=== PATIENT | male | born 1960 | race Caucasian/White ===

== ENCOUNTER 2025-03-29 06:46 | Day surgery (SDC) | payer OTHER, SELFPAY ==
[2025-03-29] VITALS (12 sets, daily range): BP systolic 120–152; BP diastolic 83–97; PULSE 60–87; RESP 13–22; TEMP 36.3–36.6; O2SAT 95–99
--- NOTE | 2025-03-29 07:46 | ANES.PREANE2 ---
Pre-Anesthetic Assessment Height/Weight: Height 5 ft 10 in Weight 226 lb Temp Pulse Resp BP Pulse Ox O2 Del Method 97.8 F 60 16 141/96 96 Room Air 03/29/25 07:05 03/29/25 07:05 03/29/25 07:05 03/29/25 07:05 03/29/25 07:05 03/29/25 07:14 Preop Diagnosis: Umbilical hernia Operation Date: 03/29/25 08:30 Proposed Procedures p Open Umbilical Hernia Repair w/ Mesh [id number], K46.9(Not Applicable) - Harry Covington MD Was Beta Thompson taken within 24 hours: N/A Was Clonidine taken within 24 hours: N/A Last intake: Intake Last Liquid Date 03/28/25 Last Liquid Time 23:45 Last Solid Date 03/28/25 Last Solid Time 23:45 Social No alcohol and No tobacco Exam alert, oriented x 3, clear to auscultation bilaterally and regular rate & rhythm Airway Submandibular: within normal limits Cervical ROM: within normal limits Mallampati: Class II Dentition: full Anesthetic Plan ASA status: 2 Anesthesia: General Other: No prior issues with anesthesia NPO since yesterday evening History of hypertension on amlodipine and lisinopril. Preop BP 141/96 Denies any pulmonary issues METs greater than 4 Plan for general anesthesia Medications/Allergies Home Medications ?Medication ?Instructions ?Recorded ?Confirmed ?Last Taken ?Type acyclovir 400 mg tablet 400 mg PO DAILY 03/16/25 03/26/25 03/28/25 History amlodipine 10 mg PO DAILY 03/16/25 03/26/25 03/29/25 History montelukast 10 mg tablet 10 mg PO DAILY 03/16/25 03/26/25 03/26/25 History primidone 50 mg tablet 50 mg PO DAILY 03/16/25 03/26/25 03/26/25 History azelastine 137 mcg (0.1 %) nasal 1 spray intranasal BID 03/25/25 03/26/25 03/26/25 History spray diclofenac sodium 75 mg 75 mg PO BID 03/25/25 03/26/25 03/26/25 History tablet,delayed release ergocalciferol (vitamin D2) 1,250 50,000 mcg PO .WEEKLY 03/25/25 03/26/25 Unknown History mcg (50,000 unit) capsule ketoconazole 200 mg tablet 200 mg PO DAILY 03/25/25 03/26/25 03/26/25 History lisinopril 20 mg tablet 20 mg PO DAILY 03/25/25 03/26/25 03/26/25 History fluticasone propionate 50 2 spray intranasal DAILY 03/26/25 03/26/25 03/26/25 History mcg/actuation nasal spray,suspension (Flonase Allergy Relief) Allergies Allergy/AdvReac Type Severity Reaction Status Date / Time Penicillins Allergy Severe ALGY-Hives Verified 03/16/25 13:57 Current Medications Generic Name Dose Route Start Last Admin Trade Name Freq PRN Reason Stop Dose Admin Sodium Chloride 1,000 mls @ 30 mls/hr 03/29/25 07:00 03/29/25 07:21 Sodium Chloride 0.9% IV 03/30/25 06:59 30 mls/hr .Q24H PENNY Administration PFSH Anesthesia Social History Smoking and tobacco/nicotine status: never used tobacco/nicotine
--- NOTE | 2025-03-29 07:52 | P.HPUD_ITS ---
Surgery/Procedure H&P Update DATE OF PROCEDURE: March 29, 2025 DATE H&P PERFORMED: 03/16/25 H&P UPDATE INFORMATION: I have reviewed H&P completed within last 30 days, I have examined patient prior to procedure, No changes to prior documentation, H&P is in [facility] EMR on date indicated and Risks and benefits of the procedure reviewed PLANNED PROCEDURE: Operation Date: 03/29/25 08:30 Proposed Procedures p Open Umbilical Hernia Repair w/ Mesh [id number], K46.9(Not Applicable) - Harry Covington MD
[2025-03-29] MEDS: BUPivacaine 0.25% INJ 10 mL INJECTION (08:39)
[2025-03-29] MEDS: lidocaine-epi 1% 20 mL INJ INJECTION (08:39)
--- NOTE | 2025-03-29 10:00 | P.OP_ITS ---
Operative Report Date of procedure: March 29, 2025 Pre-op diagnosis: Umbilical hernia Post-op diagnosis: Umbilical hernia measuring 3.5 cm Post-op findings: There was a umbilical hernia reducible measuring 3.5 cm. Healthy fascial edges. Procedure done: Umbilical hernia repair with mesh, open Implants: 6.4 cm Ventralex hernia mesh Specimens removed/disposition: None Surgeon: Harry Covington MD Grief Counsellor: HO OR staff Estimated blood loss: 10 Complications: none apparent Brief History: 64-year-old male who presents to my office with umbilical hernia for evaluation for repair. After discussion we will resume benefits as documented in my preop note we decided to proceed. Procedure: Patient was brought into the OR, he was placed in a supine position. General anesthesia was given. The abdomen was prepped and draped in the usual sterile fashion. Timeout was conducted. I was able to reduce the hernia before starting the operation. I made a 5 cm semilunar infraumbilical incision, the incision was deepened to the subcutaneous tissue to the level of the anterior fascia until the edges of the hernia were identified. I then used a Maricarmen clamp to circumferentially dissect the hernia from the surrounding tissues I was able to completely encircle the umbilical stalk. I then proceeded to transect the umbilical stalk taking careful consideration of injuring the hernia contents or the skin. Once the umbilicus was liberated I was able to appreciate the fullest and of the hernia. I proceeded to reduce the hernia sac and contents into the abdominal cavity, I then used electrocautery to freshen up the fascial edges. With my finger I developed the preperitoneal space to allow for the mesh to be placed. The mesh measuring 6.4 cm in diameter was placed in the preperitoneal space under direct visualization. The tails of the mesh were left out of the wound to allow to oppose the mesh against the anterior fascia and incorporating the closure. I then proceeded to close the hernia defect on top of the mesh using #0 Prolene [id number] sutures in a transverse fashion incorporating the tails of the mesh. Careful consideration was made of not going to the in order to prevent injury to intra-abdominal structures. Once the hernia was completely closed the tails of the mesh were transected no evidence of hernia was noted a Valsalva maneuver was done and no evidence of protrusion of the abdominal wall was noted. I then proceeded to tack the umbilicus back to the fascia using #2-0 Vicryl. Hemostasis was achieved local anesthesia was infiltrated and the wound was closed in layers using #2-0 Vicryl for the deep subcutaneous tissue #3-0 Vicryl for the subcutaneous tissue and #4-0 Monocryl for the skin. Dermabond was applied and a sterile dressing was applied on top. At the end the procedure all counts were correct, the patient tolerated well the procedure was transferred to PACU in stable condition.
[2025-03-29] MEDS: oxyCODONE 5 mg IR Tab/Cap PO (10:54)
--- NOTE | 2025-03-29 11:18 | ANE.PACU2 ---
Inpatient post-anesthesia follow up: Airway intact: Yes Vital signs: Temperature 97.3 F Pulse Rate 71 Respiratory Rate 16 Blood Pressure 151/91 Pulse Oximetry 98 Oxygen Delivery Me thod Room Air Oxygen Flow Rate Fraction of Inspir ed Oxygen Hydration adequate: Yes Nausea and vomiting: No Pain level: 1 Mental status: Baseline
== END 2025-03-29 11:18 | disposition home or self-care (01) ==
PROVIDERS: PCP Family Medicine; Visit Provider Surgery
PROC: (CPT 49593; principal; 2025-03-29 08:20)
DX: K42.9 Umbilical hernia without obstruction or gangrene (principal); I10 Essential (primary) hypertension
CPT/HCPCS: 49593; C1781; J1100; J2250; J2405; J2704; J3010; J3490; J7030; J9999

== ENCOUNTER 2025-06-07 12:52 | Emergency (ER) | payer OTHER, SELFPAY ==
--- OUTSIDE RECORDS SUMMARY | 2025-06-07 12:57 | XMS_ITS | Clinical Summary ---
Author Organization [facility] Address [address] [place] [address] Phone Care Team Providers Care Quarry Boss Name Role Phone Vasu Riley MD Primary Care Provider + [phone] Allergies Active Allergy Reactions Criticality Noted Date Comments Penicillin G Potassium 12/05/2005 12/05/2005-PENICILLIN Medications cholecalciferol (VITAMIN D3) 50,000 unit capsule Take 50,000 Units by mouth every 7 days Active dextroamphetami ne-amphetamine (ADDERALL XR) 20 MG 24 hr capsule Take 20 mg by mouth 11/17/2017 Active dextroamphetami ne-amphetamine 7.5 mg tablet Take 7.5 mg by mouth 11/14/2017 Active diclofenac sodium (VOLTAREN) [address] tablet Take 50 mg by mouth 2 (two) times a day 6 01/02/2019 Active ergocalciferol (DRISDOL) 50,000 unit capsule TK 1 C PO WEEKLY 3 01/02/2019 Active valACYclovir (VALTREX) 500 MG tablet Take 400 mg by mouth one (1) time a day 2 01/02/2019 Active fluticasone propionate (FLONASE) 50 mcg/actuation nasal sprayIndication s:Non-seasonal allergic rhinitis due to pollen,Cough two sprays by Each Nostril route one (1) time a day 16 g 12 01/13/2019 Active montelukast (SINGULAIR) 10 mg tabletIndicatio ns:Non-seasonal allergic rhinitis due to pollen,Cough Take one tablet (10 mg total) by mouth one (1) time a day 30 tablet 11 01/13/2019 Active aspirin 81 MG EC tablet Take 81 mg by mouth one (1) time a day Active lisinopriL (PRINIVIL) 20 MG tablet Take 20 mg by mouth one (1) time a day Active azelastine (ASTELIN) 137 mcg (0.1 %) nasal sprayIndication s:Chronic rhinitis USE 2 SPRAYS IN EACH NOSTRIL TWICE DAILY 30 mL 11 11/14/2021 Active Active Problems Problem Noted Date Diagnosed Date Cough variant asthma 08/16/2020 Resolved Problems Problem Noted Date Diagnosed Date Resolved Date Chronic rhinitis 08/16/2020 11/14/2020 Immunizations Immunization Administration Dates Next Due Influenza Inj. MDCK (PF) 08/22/2015 Influenza Seasonal Inj. (PF) 09/25/2016 Influenza TIV (IM) 0.25mL 06/15/2014 MMR 10/19/1993,09/11/1993 Tdap 11/17/2013,08/15/2005 Family History Medical History Relation Name Comments Cancer Father Heart failure Father Hypertension Father Relation Name Status Comments Father Social History Tobacco Use Types Packs/Day Years Used Date Smoking Tobacco: Never Smokeless Tobacco: Current Chew Comments:Uses Chewing Tobacc o currently and has since 1986 Sex and Gender Information Value Date Recorded Sex Assigned at Not on file Legal Sex Male 11:08 AM CDT Gender Identity Not on file Sexual Orientation Not on file Last Filed Vital Signs Vital Sign Reading Time Taken Comments Blood Pressure 140/94 03/11/2019 12:00 PM CDT Pulse 78 03/11/2019 12:00 PM CDT Temperature 36.9 C (98.5 F) 03/11/2019 12:00 PM CDT Respiratory Rate 16 03/11/2019 12:00 PM CDT Oxygen Saturation - - Inhaled Oxygen Concentration - - Weight 96.6 kg (213 lb) 03/11/2019 12:00 PM CDT Height 177.8 cm (5' 10 ) 03/11/2019 12:00 PM CDT Body Mass Index 30.56 03/11/2019 12:00 PM CDT Plan of Treatment Health Maintenance Due Date Last Done Comments Colonoscopy Every 6 Months 1962 Colorectal Cancer Screening Annual FOBT/FIT Test 1962 Colorectal Cancer Screening Cologuard 1962 Colorectal Cancer Screening Flex Sigmoidoscopy 1962 Pneumococcal Vaccine High Risk 1962 Annual Depression Screening 1973 Hepatitis C Antibody Screen 1980 Pneumococcal Vaccine Age 50+ (1 of 2 - PCV) 1981 Colorectal CA Screen 10 Year Colonoscopy 11/27/2007 Colorectal Cancer Screening 11/27/2007 Zoster Vaccine (Shingles) (1 of 2) 2012 Annual Physical 09/25/2017 09/25/2016 RSV Immunization Pa tients or 60+ Years (1 - Risk 60-74 years 1-dose series) 2022 DTap/Tdap/Td Vaccines (3 - T d or Tdap) 11/18/2023 11/17/2013, 08/15/2005 Flu Vaccine (#1) 05/03/2025 09/25/2016, , 06/15/2014 Influenza Vaccine 05/03/2025 09/25/2016, , 06/15/2014 Insurance [employer] [id number] GENERIC COMMERCIAL Care Teams Quarry Boss Relationship Specialty Start Date End Date Vasu Riley MD [address] [place] [id number] PCP - General Internal Medicine 01/09/19
--- OUTSIDE RECORDS SUMMARY | 2025-06-07 12:57 | XMS_ITS | Clinical Summary ---
Author Organization [facility] Address [address] Attn: Epic Prelude ADT [place] [address] Care Team Providers Care Nurse Research Name Role Phone [facility], External Provider Primary Care Provider [phone]- [phone] Allergies Active Allergy Reactions Criticality Noted Date Comments Penicillins Unknown High 10/06/2019 Patient states I was told when I was a baby that there was a reaction Medications glucosamine HCl/chondroitin jean baptiste (GLUCOSAMINE-CH ONDROITIN ORAL) Take 1 Tablet by mouth 2 times daily. 0 Active fluticasone propionate (FLONASE) 50 mcg/spray [place], Suspension nasal inhaler Administer 2 Sprays in each nostril daily. 0 Active primidone (MYSOLINE) 50 mg tablet Take 50 mg by mouth daily at bedtime. 0 Active diclofenac sodium (VOLTAREN) 50 mg Tablet, Delayed Release (E.C.) Take 50 mg by mouth 2 times daily. 0 Active ibuprofen (MOTRIN) 800 mg tablet Take 800 mg by mouth every 6 hours as needed for Pain, Mild. 0 Active MEN'S MULTI-VITAMIN ORAL Take 1 Tablet by mouth daily. 0 Active acyclovir (ZOVIRAX) 400 mg tablet Take 400 mg by mouth daily. 0 Active ergocalciferol (VITAMIN D2) 50,000 unit capsule Take 50,000 Units by mouth every 7 days. 0 Active azelastine (ASTELIN) 137 mcg/actuation nasal spray Administer 137 Sprays in each nostril 2 times daily. 0 Active dextroamphetami ne-amphetamine (ADDERALL) 20 mg tablet Take 20 mg by mouth daily. 0 Active dextroamphetami ne-amphetamine (ADDERALL) 7.5 mg tablet Take 7.5 mg by mouth daily. 0 Active lisinopriL (PRINIVIL) 20 mg tablet Take 20 mg by mouth daily. 0 Active montelukast (SINGULAIR) 10 mg tablet Take 10 mg by mouth daily at bedtime. 0 Active Active Problems Problem Noted Date Diagnosed Date Status post total knee replacement 06/07/2021 Status post total left knee replacement sx 06/20/2020 w/Dr Richy Hogan. 07/06/2020 Primary osteoarthritis of left knee 06/14/2020 Status post right knee replacement 03/24/2020 Elevated ALT measurement 01/26/2020 Essential hypertension 11/25/2019 Allergic rhinitis 11/25/2019 Obesity (BMI 30.0-34.9) 11/25/2019 Preoperative general physical examination 2019 Attention deficit disorder 11/25/2019 Past history of chewing tobacco use 11/25/2019 Mild persistent asthma without complication 11/01 Primary osteoarthritis of right knee 11/25/2019 Essential tremor Resolved Problems Problem Noted Date Diagnosed Date Resolved Date Hyperkalemia 01/26/2020 06/14/2020 Family History Medical History Relation Name Comments Heart Disease Daughter Cancer Father Bladder mets to bone Other Father Aortic aneurysm Healthy Mother Breast Cancer Sister Other Sister MS Healthy Son Relation Name Status Comments Brother NONE Daughter Alive Father (Age 80) Mother Alive Sister Alive Son Alive Social History Tobacco Use Types Packs/Day Years Used Date Smoking Tobacco: Never Smokeless Tobacco: Former Quit: 10/14/2019 Comments:Quit smoking: Chewe d tobacco for 33 years Alcohol Use Standard Drinks/Week Comments Yes 0 (1 standard drink = 0.6 oz pur e alcohol) Sex and Gender Information Value Date Recorded Sex Assigned at Not on file Legal Sex Male 9:39 PM STEREOTYPER HELPER Gender Identity Not on file Sexual Orientation Not on file Last Filed Vital Signs Vital Sign Reading Time Taken Comments Blood Pressure 164/110 08/04/2020 1:16 PM STEREOTYPER HELPER Provider Notified Pulse 81 08/04/2020 1:16 PM STEREOTYPER HELPER Temperature 37.4 C (99.3 F) 06/21/2020 2:05 PM CDT Respiratory Rate 16 06/21/2020 12:5 9 PM CDT Oxygen Saturation - - Inhaled Oxygen Concentration - - Weight 105.7 kg (233 lb) 08/04/2020 1:1 6 PM STEREOTYPER HELPER Height 177.8 cm (5' 10 ) 08/04/2020 1:1 6 PM STEREOTYPER HELPER Body Mass Index 33.43 08/04/2020 1:16 PM STEREOTYPER HELPER Plan of Treatment Health Maintenance Due Date Last Done Comments DTAP/TDAP/TD VACCINES (1 - Tdap) 1981 COLORECTAL SCREENING 11/27/2007 Colorectal Cancer Screening 11/27/2007 FIT-DNA Q 3 years 11/27/2007 FIT/FOBT Q 1 year 11/27/2007 Flex Sig/CT Colonography Q 5 years 11/27/2007 ZOSTER VACCINE (1 of 2) 2012 RSV VACCINE (60+ or ) (1 - Risk 60-74 years 1-dose series) 2022 INFLUENZA VACCINE (#1) 2025 Medical Devices Implanted Type Area Ex Assistant/Program Director Device Identifier Shelf Expiration Date Model / Serial / Lot Cement Simplex Hvisc 6194-1-010 - [id number] Implanted:04/2020 by Jay Hogan MD (Quantity not on file) Cement Right: Knee [employer] [id number] 03/01/2021 6194-1-010 / / [id number] Cement Simplex Hvisc 6194-1-010 - [id number] Implanted:04/2020 by Jay Hogan MD (Quantity not on file) Cement Right: Knee [employer] [id number] 03/01/2021 6194-1-010 / / [id number] Cement Simplex Hvisc 6194-1-010 - [id number] Implanted:Qty : 1 on 06/20/2020 by Jay Hogan MD Cement Left: Knee [employer] [id number] 07/02/2021 6194-1-010 / / [id number] Cement Simplex Hvisc 6194-1-010 - [id number] Implanted:Qty : 1 on 06/20/2020 by Jay Hogan MD Cement Left: Knee [employer] [id number] 08/01/2021 6194-1-010 / / [id number] Comp Fem Attune Cr Cmnt Sz7 1504-00-207 - [id number] Implanted:Qty : 1 on 02/08/2020 by Jay Hogan MD Knee Right: Knee [employer] [id number] 10/02/2029 [id number] / / [id number] Comp Tib Attune Fb Cmnt Sz7 1506-70-007 - [id number] Implanted:Qty : 1 on 02/08/2020 by Jay Hogan MD Knee Right: Knee [employer] [id number] 09/01/2029 [id number] / / [id number] Insert Attune Fb Cr Sz7 10mm 1516-20-710 - [id number] Implanted:Qty : 1 on 02/08/2020 by Jay Hogan MD Knee Right: Knee [employer] [id number] 09/01/2023 [id number] / / [id number] Insert Attune Fb Cr Sz7 10mm 1516-20-710 - [id number] Implanted:Qty : 1 on 06/20/2020 by Jay Hogan MD Knee Left: Knee [employer] [id number] 10/30/2024 [id number] / / [id number] Comp Fem Attune Cr Cmnt Sz7 1504-00-107 - [id number] Implanted:Qty : 1 on 06/20/2020 by Jay Hogan MD Knee Left: Knee [employer] [id number] 04/01/2030 [id number] / / [id number] Comp Tib Attune Fb Cmnt Sz7 1506-70-007 - [id number] Implanted:Qty : 1 on 06/20/2020 by Jay Hogan MD Knee Left: Knee [employer] [id number] 10/30/2029 [id number] / / [id number] Insurance * Guarantor: TERRY LARA Account Type Relation to Patient Date of Phone Billing Address Personal/Family [address] [place] [address] RX [employer] [facility]) [facility] Advance Directives For more information, please contact: [phone] Documents on File Type Date Recorded Patient Tank Stave Assembler Expl anation Advance Directive POA 11/19/2019 10:45 AM Advance Directive POA Care Teams Nurse Research Relationship Specialty Start Date End Date [facility], External Provider [facility] [place] [address] PCP - General Family Practice 11/19/19
--- OUTSIDE RECORDS SUMMARY | 2025-06-07 12:57 | XMS_ITS | Clinical Summary ---
Author Organization [facility] tone Address [address] [place] [address] Care Team Providers Care All Around Gear Machine Operator Name Role Phone [facility], External Provider Primary Care Provider +1- [phone] Allergies Active Allergy Reactions Criticality Noted Date Comments Penicillins Unknown High 10/06/2019 Patient states I was told when I was a baby that there was a reaction Medications azelastine (ASTELIN) 137 mcg/actuation nasal spray Administer 137 Sprays in each nostril 2 times daily. 0 Active ergocalciferol (VITAMIN D2) 50,000 unit capsule Take 50,000 Units by mouth every 7 days. 0 Active lisinopril (PRINIVIL) 20 mg tablet Take 20 mg by mouth daily. 0 Active montelukast (SINGULAIR) 10 mg tablet Take 10 mg by mouth daily at bedtime. 0 Active acyclovir (ZOVIRAX) 400 mg tablet Take 400 mg by mouth daily. Active dextroamphetami ne-amphetamine (ADDERALL) 7.5 mg tablet Take 7.5 mg by mouth daily. Active dextroamphetami ne-amphetamine (ADDERALL) 20 mg tablet Take 20 mg by mouth daily. Active glucosamine HCl/chondroitin jean baptiste (GLUCOSAMINE-CH ONDROITIN ORAL) Take 1 Tablet by mouth 2 times daily. Active primidone (MYSOLINE) 50 mg tablet Take 50 mg by mouth daily at bedtime. Active fluticasone propionate (FLONASE) 50 mcg/spray [place], Suspension nasal inhaler Administer 2 Sprays in each nostril daily. Active aspirin (ECOTRIN EC) 81 mg Tablet, Delayed Release (E.C.) Take 1 Tablet (81 mg) by mouth 2 times daily. 60 Tablet 02/10/2020 1:17 PM CDT 0 Active ibuprofen (MOTRIN) 800 mg tablet Take 800 mg by mouth every 6 hours as needed for Pain, Mild. Active diclofenac sodium (VOLTAREN) 50 mg Tablet, Delayed Release (E.C.) Take 50 mg by mouth 2 times daily. Active MEN'S MULTI-VITAMIN ORAL Take 1 Tablet by mouth daily. Active polyethylene glycol 3350 (MIRALAX) 17 gram/dose Powder Take 1 SCOOP (17 Grams) by mouth 1 time daily as needed for Constipation. 510 Gram 06/21/2020 3:51 PM CDT 0 Active cyclobenzaprine (FLEXERIL) 10 mg tablet Take 1 Tablet (10 mg) by mouth 3 times daily. 30 Tablet 06/21/2020 5:00 PM CDT 0 Active Active Problems Problem Noted Date Diagnosed Date Status post total left knee replacement sx 06/20/2020 w/Dr Richy Hogan. 07/06/2020 Primary osteoarthritis of left knee 06/14/2020 Status post right knee replacement 03/24/2020 Elevated ALT measurement 01/26/2020 Preoperative general physical examination 2019 Essential hypertension 11/25/2019 Mild persistent asthma without complication 11/01 Attention deficit disorder 11/25/2019 Allergic rhinitis 11/25/2019 Primary osteoarthritis of right knee 11/25/2019 Past history of chewing tobacco use 11/25/2019 Obesity (BMI 30.0-34.9) 11/25/2019 Essential tremor Resolved Problems Problem Noted [...] Tobacco: Never Smokeless Tobacco: Former Quit: 10/14/2019 Comments:Chewed tobacco for 33 years Alcohol Use Standard Drinks/Week Comments Yes 0 (1 standard drink = 0.6 oz pur e alcohol) 1-2 beers once a month Sex and Gender Information Value Date Recorded Sex Assigned at Not on file Legal Sex Male 4:03 PM WELDER APPRENTICE COMBINATION Gender Identity Not on file Sexual Orientation Not on file Last Filed Vital Signs Vital Sign Reading Time Taken Comments Blood Pressure 164/110 08/04/2020 1:16 PM WELDER APPRENTICE COMBINATION Provider Notified Pulse 81 08/04/2020 1:16 PM WELDER APPRENTICE COMBINATION Temperature 37.4 C (99.3 F) 06/21/2020 2:05 PM CDT Respiratory Rate 16 06/21/2020 12:5 9 PM CDT Oxygen Saturation 95% 06/21/2020 12: 59 PM CDT Inhaled Oxygen Concentration - - Weight 105.7 kg (233 lb) 08/04/2020 1:1 6 PM WELDER APPRENTICE COMBINATION Height 177.8 cm (5' 10 ) 08/04/2020 1:1 6 PM WELDER APPRENTICE COMBINATION Body Mass Index 33.43 08/04/2020 1:16 PM WELDER APPRENTICE COMBINATION Plan of Treatment Health Maintenance Due Date [...] (#1) 2025 Medical Devices Implanted Type Area Tunnel Miner Device Identifier Shelf Expiration Date Model / Serial / Lot Cement Simplex Hvisc 6194-1-010 - [id number] Implanted:04/2020 by Jay Hogan MD at [facility] (Quantity not on file) Cement Right: Knee [employer]AMTA- [employer] [id number] 03/01/2021 6194-1-010 / / [id number] Cement Simplex Hvisc 6194-1-010 - [id number] Implanted:04/2020 by Jay Hogan MD at [facility] (Quantity not on file) Cement Right: Knee [employer]TA- [employer] [id number] 03/01/2021 6194-1-010 / / [id number] Cement Simplex Hvisc 6194-1-010 - [id number] Implanted:Qty: 1 on 06/20/2020 by Jay Hogan MD at [facility] Cement Left: Knee MAMTA- [employer] [id number] 08/01/2021 6194-1-010 / / [id number] Cement Simplex Hvisc 6194-1-010 - [id number] Implanted:Qty: 1 on 06/20/2020 by Jay Hogan MD at [facility] Cement Left: Knee MAMTA- [employer] [id number] 07/02/2021 6194-1-010 / / [id number] Comp Fem Attune Cr Cmnt Sz7 1504-00-207 - [id number] Implanted:Qty: 1 on 02/08/2020 by Jay Hogan MD at [facility] Knee Right: Knee [employer] [id number] 10/02/2029 [id number] / / [id number] Comp Tib Attune Fb Cmnt Sz7 1506-70-007 - [id number] Implanted:Qty: 1 on 02/08/2020 by Jay Hogan MD at [facility] Knee Right: Knee [employer] [id number] 09/01/2029 [id number] / / [id number] Insert Attune Fb Cr Sz7 10mm 1516-20-710 - [id number] Implanted:Qty: 1 on 02/08/2020 by Jay Hogan MD at [facility] Knee Right: Knee [employer] [id number] 09/01/2023 [id number] / / [id number] Comp Tib Attune Fb Cmnt Sz7 1506-70-007 - [id number] Implanted:Qty: 1 on 06/20/2020 by Jay Hogan MD at [facility] Knee Left: Knee [employer] [id number] 10/30/2029 [id number] / / [id number] Comp Fem Attune Cr Cmnt Sz7 1504-00-107 - [id number] Implanted:Qty: 1 on 06/20/2020 by Jay Hogan MD at [facility] Knee Left: Knee [employer] [id number] 04/01/2030 [id number] / / [id number] Insert Attune Fb Rafael Sz7 10mm 1516-20-710 - [id number] Implanted:Qty: 1 on 06/20/2020 by Jay Hogan MD at [facility] Knee Left: Knee [employer] [id number] 10/30/2024 [id number] / / [id number] Insurance [facility] RX [employer] Commercial RX [place] [employer] (INTERNAL) [facility] Internal Plans Advance Directives For more information, please contact: [phone] Documents on File Type Date Recorded Patient Journeyman Millwright Expl anation Advance Directive POA 11/19/2019 10:45 AM Advance Directive POA * Full Code (Latest Code Status on File) Date Activated Date Inactivated Comments 06/20/2020 2:03 PM 06/21/2020 7:16 PM * Full Code Date Activated Date Inactivated Comments 02/08/2020 5:59 PM 02/10/2020 4:09 PM * Full Code Date Activated Date Inactivated Comments 02/08/2020 11:48 AM 02/08/2020 5:59 PM Care Teams All Around Gear Machine Operator Relationship Specialty Start Date End Date [facility], External Provider [address] [place] [address] PCP - General Family Practice 11/19/19
--- OUTSIDE RECORDS SUMMARY | 2025-06-07 12:57 | XMS_ITS | Encounter Summary ---
Author Organization [facility] Address [address] [place] [address] Care Team Providers Care Lawn Care Technician Name Role Phone [facility], External Provider Primary Care Provider +1- [phone] Reason for Visit * Reason Comments Medication Refill Encounter Details Date Type Department Care Team (Late st Contact Info) Description 01/11/2020 Refill [facility] [address] [place] [address] Adams, JEANNA Camara [address] [facility] [address] [place] [address] Social History Tobacco Use Types Packs/Day Years Used Date Smoking Tobacco: Never Smokeless Tobacco: Former Quit: 10/14/2019 Comments:Chewed tobacco for 33 years Alcohol Use Standard Drinks/Week Comments Yes 0 (1 standard drink = 0.6 oz pur e alcohol) Sex and Gender Information Value Date Recorded Sex Assigned at Not on file Legal Sex Male 4:03 PM PROGRAM HOST Gender Identity Not on file Sexual Orientation Not on file COVID-19 Exposure Response Date Recorded In the last month, have you been in contact with someone who was confirmed or suspected to have Coronavirus / COVID-19? No / Unsure 01/06/2020 10:26 AM CDT documented as of this encounter Miscellaneous Notes * Telephone Encounter - Kiki Peña - 01/12/2020 9:51 AM CDT Need to go to PCP documented in this encounter Plan of Treatment Not on file documented as of this encounter Visit Diagnoses Not on filedocumented in this encounter Care Teams Lawn Care Technician Relationship Specialty Start Date End Date [facility], External Provider [facility] [place] [address] PCP - General Family Practice 11/19/19 documented as of this encounter
--- OUTSIDE RECORDS SUMMARY | 2025-06-07 12:57 | XMS_ITS | Encounter Summary ---
Author Organization [facility] Address [address] [facility] [address] Phone Care Team Providers Care Plant Physiologist Name Role Phone Vasu Riley MD Primary Care Provider + [phone] Reason for Visit * Reason Comments Medication Refill Encounter Details Date Type Department Care Team (Late st Contact Info) Description 02/05/2020 Refill [facility] [address] [facility] [place] [address] Min Salmeron MD [address] [place] [address] Non-seasonal allergic rhinitis due to pollen; Cough Social History Tobacco Use Types Packs/Day Years Used Date Smoking Tobacco: Never Smokeless Tobacco: Current Chew Comments:Uses Chewing Tobacc o currently and has since 1986 Sex and Gender Information Value Date Recorded Sex Assigned at Not on file Legal Sex Male 11:08 AM CDT Gender Identity Not on file Sexual Orientation Not on file documented as of this encounter Plan of Treatment Not on file documented as of this encounter Visit Diagnoses Diagnosis Non-seasonal allergic rhinitis due to pollen Cough documented in this encounter Additional Health Concerns Assessment Noted Time A fall risk assessment has been complete d for the patient 01/19/2019 3:39 PM CDT documented as of this encounter Care Teams Plant Physiologist Relationship Specialty Start Date End Date Vasu Riley MD [address] [place] [address] PCP - General Internal Medicine 01/09/19 documented as of this encounter
--- OUTSIDE RECORDS SUMMARY | 2025-06-07 12:57 | XMS_ITS | Clinical Summary ---
Author Organization [facility] Address [address] [place] [address], [place] [address] Care Team Providers Care Sfdc Architect Name Role Phone Unavailable Primary Care Provider Unavailabl e Allergies Active Allergy Reactions Criticality Noted Date Comments Penicillin G Potassium 12/05/2005 12/05/2005-PENICILLIN Medications * This document contains information received from the source organization and may not represent a complete record from that organization. amphetamine-dextro amphetamine (ADDERALL XR) 20 MG XR capsuleIndications :Attention deficit hyperactivity disorder (ADHD), predominantly inattentive type Take 1 Cap (20 mg) by mouth every morning for 30 days 30 Cap 8 Active amphetamine-dextro amphetamine (ADDERALL) 7.5 MG tabletIndications: Attention deficit hyperactivity disorder (ADHD), predominantly inattentive type Take 1 Tab (7.5 mg) by mouth daily for 30 days 30 Tab 8 Active Cholecalciferol (VITAMIN D3) 96623 units capsuleIndications :Need for pneumococcal vaccination,Need for influenza vaccination,Screen for colon cancer,Mild persistent asthmatic bronchitis with acute exacerbation,Atten tion deficit hyperactivity disorder (ADHD), predominantly inattentive type,Benign hypertension,Hypov itaminosis D,Routine medical exam,Cough in adult patient Take 50,000 Units by mouth once a week Active valACYclovir (VALTREX) 500 MG tabletIndications: Need for pneumococcal vaccination,Need for influenza vaccination,Screen for colon cancer,Mild persistent asthmatic bronchitis with acute exacerbation,Atten tion deficit hyperactivity disorder (ADHD), predominantly inattentive type,Benign hypertension,Hypov itaminosis D,Routine medical exam,Cough in adult patient TAKE 1 TABLET BY MOUTH DAILY 90 Tab 3 8 Active lisinopril-hydroch lorothiazide (PRINZIDE, ZESTORETIC) 20-25 MG per tabletIndications: Need for pneumococcal vaccination,Need for influenza vaccination,Screen for colon cancer,Mild persistent asthmatic bronchitis with acute exacerbation,Atten tion deficit hyperactivity disorder (ADHD), predominantly inattentive type,Benign hypertension,Hypov itaminosis D,Routine medical exam,Cough in adult patient Take 1 Tab by mouth daily 30 Tab 11 8 Active fluticasone-salmet drake (ADVAIR) 100-50 MCG/DOSE diskus inhalerIndications :Mild persistent asthmatic bronchitis with acute exacerbation,Need for pneumococcal vaccination,Need for influenza vaccination,Screen for colon cancer,Attention deficit hyperactivity disorder (ADHD), predominantly inattentive type,Benign hypertension,Hypov itaminosis D,Routine medical exam,Cough in adult patient Inhale 1 Puff by mouth every 12 hours for 30 days 1 Inhaler 11 8 Active fluticasone-salmet drake (ADVAIR) 100-50 MCG/DOSE diskus inhalerIndications :Cough in adult patient,Mild persistent asthmatic bronchitis with acute exacerbation,Need for pneumococcal vaccination,Need for influenza vaccination,Screen for colon cancer,Attention deficit hyperactivity disorder (ADHD), predominantly inattentive type,Benign hypertension,Hypov itaminosis D,Routine medical exam Inhale 1 Puff by mouth every 12 hours for 30 days 1 Inhaler 8 Active Active Problems Patient Care Coordination No te Formatting of this note migh t be different from the original. Medication Agreement Contract signed 10/22/[address] Weston for Adderall. Inspect Done 10/22/17 Problem Noted Date Diagnosed Date Hypovitaminosis D 10/22/2017 Benign hypertension 09/25/2016 IFG (impaired fasting glucose) 12/17/2012 Asthmatic bronchitis 08/22/2011 ADHD (attention deficit hyperactivity disorder) 08/22/2011 Radiculitis 2008 Overview (01/14/2017): Lumbar radiculitis IMO clean-up IMO update to inactive DX Resolved Problems Problem Noted Date Diagnosed Date Resolved Date Dermatitis 11/12/2011 05/19/2012 Tobacco use disorder 2008 012 Overview (02/25/2009): Tobacco Use Disorder Immunizations Immunization Administration Dates Next Due Influenza Split Virus 06/15/2014 Influenza Split Virus Preservative Free 09/25/19 17 Influenza, MDCK, trivalent, PF >=6 mos 5 MMR 10/19/1993,09/11/1993 Tdap 11/17/2013,08/15/2005 Family History Medical History Relation Name Comments Other (See Comments) Daughter 1 congeni shade heart defect High Blood Pressure Father Cancer Sister breast Defects Son Relation Name Status Comments Daughter 1 Alive Daughter 2 Alive Daughter 3 Alive Father Mother Alive Sister Alive Son Alive Social History Tobacco Use Types Packs/Day Years Used Date Smoking Tobacco: Never Cigarettes Smokeless Tobacco: Current Chew Tobacco Cessation:Ready to Q uit: No; Counseling Given: Yes Comments:declines: counseling and handouts offered Alcohol Use Standard Drinks/Week Comments Yes 1 (1 standard drink = 0.6 oz pur e alcohol) Alcohol Use Answer Date Recorded Frequency of Alcohol Consumption Not on file 05/22/2020 Average Number of Drinks Not on file 020 Frequency of Binge Drinking Not on file 05/04 Alcohol Use Status Yes 05/22/2020 Average alcohol consumption Not on file 05/04 Sex and Gender Information Value Date Recorded Sex Assigned at Not on file Legal Sex Male 9:04 AM HOSE TUBING BACKER Gender Identity Not on file Sexual Orientation Not on file Occupation Industry Job Start Date Job End Date Not on file Not on file Not on file Not on file Last Filed Vital Signs Vital Sign Reading Time Taken Comments Blood Pressure 140/90 10/22/2017 8:23 AM HOSE TUBING BACKER Pulse 78 10/22/2017 8:23 AM HOSE TUBING BACKER Temperature 36.2 C (97.1 F) 10/22/2017 8:23 AM HOSE TUBING BACKER Respiratory Rate 18 02/28/2014 12:21 AM CDT Oxygen Saturation 99% 10/22/2017 8:23 AM HOSE TUBING BACKER Inhaled Oxygen Concentration - - Weight 95.3 kg (210 lb) 10/22/2017 8:23 AM HOSE TUBING BACKER Height 172.7 cm (5' 8 ) 02/28/2014 12:21 AM CDT Body Mass Index 31.93 02/28/2014 12:21 AM CDT Plan of Treatment Health Maintenance Due Date Last Done Comments HIV Screening 1960 Hepatitis C Screening ages 18 to 79 once 1960 Pneumococcal Vaccine: Peds to 50 & At-Risk Patients (1 of 2 - PCV) 1981 Zoster Vaccine (Recombinant Vaccine) (1 of 2) 2012 LIPID TESTING 09/25/2017 09/25/2016, 12/01, 10/16/2010, Additional history exists DEPRESSION SCREENING 10/22/2018 10/22/2017, 10/22/2017, 09/25/2016, Additional history exists YEARLY WELLNESS EXAM 10/22/2018 10/22/2017, 09/25/2016, 09/25/2016, Additional history exists Colon Cancer Screening 12/06/2018 12/06/2008 RSV Vaccines (1 - Risk 60-74 years 1-dose series) 2022 ADULT TETANUS 11/18/2023 11/17/2013, 08/15/2005 Influenza Vaccine 04/02/2025 06/24/2017 (Do ne/Outside Provider), 09/25/2016, 08/22/2015, Additional history exists COVID-19 Immunization ( season) 2025 MMR VACCINES Completed 10/19/1993, 09/11/1993 HEPATITIS A VACCINES Aged Out No long er eligible based on patient's age to complete this topic HEPATITIS B VACCINES Aged Out No long er eligible based on patient's age to complete this topic HIB VACCINES Aged Out No longer eligi ble based on patient's age to complete this topic HPV VACCINES Aged Out No longer eligi ble based on patient's age to complete this topic IPV VACCINES Aged Out No longer eligi ble based on patient's age to complete this topic MENINGOCOCCAL VACCINE Aged Out No ari mare eligible based on patient's age to complete this topic Meningococcal B Vaccine Aged Out No l onger eligible based on patient's age to complete this topic ROTAVIRUS VACCINES Aged Out No longer eligible based on patient's age to complete this topic Procedures Procedure Name Priority Date/Time Associated Diagnosis Comments LIPID PROFILE Routine 09/25/2016 3:15 PM HOSE TUBING BACKER Screening for lipoid disorders from Last 3 Months or Most Recently Relevant to Health Maintenance Results * LIPID PROFILE (09/25/2016 3:15 PM HOSE TUBING BACKER) Cholesterol 171 <200 MG/DL [facility] Triglycerides 102 0 - 149 MG/DL [facility] HDL 53 >40 MG/DL [facility] LDL Cholesterol 98 <130 MG/DL [facility] LDL/HDL Ratio 1.85 [facility] VLDL, Calc 20 5 - 40 MG/DL SUNQUEST LDL, High Risk RT0 RELATIVE RISK MALE FEMALE 1/2 AVERAGE 1.00 1.47 AVERAGE 3.55 3.22 2X AVERAGE 6.25 5.03 3X AVERAGE 7.99 6.14 AN AVERAGE RISK RATIO INFERS A 10% LIKELIHOOD OF SIGNIFICANT CAD BY AGE 60. OTHER RISK FACTORS SUCH GLUCOSE INTOLERANCE, SMOKING HISTORY, HYPERTENSION AND OBESITY WILL FURTHER MODIFY THE RELATIVE RISK RATIO. [facility]QUEST Blood 09/25/2016 3:15 PM HOSE TUBING BACKER 09/25/2016 3:18 PM HOSE TUBING BACKER us Iam Patterson DO CHEMISTRY ORDERABLES Final Re sult SUNMIGUEL from Last 3 Months or Most Recently Relevant to Health Maintenance Insurance [facility]
--- OUTSIDE RECORDS SUMMARY | 2025-06-07 12:57 | XMS_ITS | Encounter Summary ---
Author Organization [facility] Address [address] [place] [address] Care Team Providers Care Catheter Builder Name Role Phone [facility], External Provider Primary Care Provider +1- [phone] Encounter Details Date Type Department Care Team (Latest Contact Info) Description 02/23/2020 Ancillary Orders [facility] - [facility] [address] [place] [address] Lissa Fajardo, JEANNA [address] [place] [address] Status post total left knee replacement Social History Tobacco Use Types Packs/Day Years Used Date Smoking Tobacco: Never Smokeless Tobacco: Former Quit: 10/14/2019 Comments:Chewed tobacco for 33 years Alcohol Use Standard Drinks/Week Comments Yes 0 (1 standard drink = 0.6 oz pur e alcohol) Sex and Gender Information Value Date Recorded Sex Assigned at Not on file Legal Sex Male 4:03 PM SHIP/REC/DOC CONTROL Gender Identity Not on file Sexual Orientation Not on file COVID-19 Exposure Response Date Recorded In the last month, have you been in contact with someone who was confirmed or suspected to have Coronavirus / COVID-19? No / Unsure 02/26/2020 1:07 PM CDT documented as of this encounter Plan of Treatment Not on file documented as of this encounter Results * XR KNEE 1 OR 2 VW RIGHT (02/23/2020 1:11 PM CDT) Anatomical Region Laterality Modality Lower Extremity Computed Radiogr aphy Narrative 02/29/2020 6:57 AM CDT AP of bilateral knees and lateral view of the right knee were obtained and reviewed today in the clinic. X-rays show a well-placed DePuy Attune total knee arthroplasty. Bone/prosthesis and cement interfaces look fine. Component positioning and alignment appear normal. There is no evidence of subsidence, loosening, or osteolysis. The patient has a modoc patella. 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 There is no fracture, lytic lesion, tumor, or other pathologic process seen. us Lissa MEEKS DIAGNOSTIC IMAGING ORDERABLE S Final Result documented in this encounter Visit Diagnoses Diagnosis Status post total left knee replacement Status post total left knee replacement documented in this encounter Care Teams Catheter Builder Relationship Specialty Start Date End Date [facility], External Provider [address] [place] [address] PCP - General Family Practice 11/19/19 documented as of this encounter
--- OUTSIDE RECORDS SUMMARY | 2025-06-07 12:57 | XMS_ITS | Encounter Summary ---
Author Organization [facility] Address [address] [place] [address] Phone Care Team Providers Care Sawmill Production Worker Name Role Phone Vasu Riley MD Primary Care Provider + [phone] Reason for Visit * Reason Comments Medication Refill Encounter Details Date Type Department Care Team (Late st Contact Info) Description 07/20/2020 Refill [facility] [address], [address] [place] [address] Min Salmeron MD [address] [place] [address] Social History Tobacco Use Types Packs/Day Years [...] Diagnoses Not on filedocumented in this encounter Additional Health Concerns Assessment Noted Time A fall risk assessment has been complete d for the patient 01/19/2019 3:39 PM CDT documented as of this encounter Care Teams Sawmill Production Worker Relationship Specialty Start Date End Date Vasu Riley MD [address] [place] [address] PCP - General Internal Medicine 01/09/19 documented as of this encounter
[2025-06-07 13:03] VITALS: BP 151/98; PULSE 78; RESP 16; TEMP 36.8; O2SAT 97; BMI 34.1
[2025-06-07 13:05] VITALS: BP 151/98; PULSE 81; O2SAT 97
--- NOTE | 2025-06-07 13:08 | XR_ITS ---
WS: [id number] Portable AP upright chest, 06/07/2025 Clinical Data: Weakness Comparison: None. Findings: No nodules, masses or effusions are seen. The heart is normal. The pulmonary vascularity is not increased. No pneumonia or pneumothorax is seen. The aortic arch and descending thoracic aorta show tortuosity. XR/XR chest 1V portable [id number] Impression: Atherosclerosis.
--- NOTE | 2025-06-07 13:08 | CT_ITS ---
WS: [id number] CT HEAD TECHNIQUE: Noncontrast CT of the head obtained from the skullbase to the vertex. CLINICAL INFORMATION: TIA Several days ago COMPARISON: None. DLP: 1111.[address] scans at [facility] use at least one of these dose optimization techniques: automated exposure control; mA and/or kV adjustment per patient size (includes targeted exams where dose is matched to clinical indication); or iterative reconstruction. FINDINGS: No evidence of intracranial hemorrhage or mass effect. Ventricular system and basal cisterns are patent. Mild small vessel changes with mild parenchymal volume loss. No extra-axial fluid collections. No evidence of mass or mass effect. Mild mucosal thickening in the paranasal sinuses. Mastoid air cells are well aerated. CT/CT head wo con* [id number] IMPRESSION: 1. No evidence of intracranial hemorrhage or mass effect. 2. No acute intracranial findings.
--- NOTE | 2025-06-07 13:09 | W.ED.NEUROSD ---
HPI - Neuro Symptoms/Deficit General: Chief Complaint: Neuro Symptoms/Deficit Stated Complaint: dr souza, YUNIER on , abnormal ekg Time Seen by Provider: 06/07/25 13:01 History of Present Illness: 64-year-old man with a history of umbilical hernia, hypertension, and obesity who presents emergency room from his clinic with concerns for an abnormal EKG. 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 He caught himself on the fire truck and then the symptoms improved shortly thereafter and he went ahead and continue working. He saw his doctor about this and they felt he needed to go directly to the emergency room. They told him he needed to see a strip winder. He has not had any chest pain. He said has had some worsening exertional dyspnea. No further neurologic symptoms. No altered mental status. No fevers. No abdominal pain. No nausea or vomiting. Related Data Home Medications ?Medication ?Instructions ?Recorded ?Confirmed acyclovir 400 mg tablet 400 mg PO DAILY 03/16/25 04/27/25 amlodipine 10 mg PO DAILY 03/16/25 04/27/25 montelukast 10 mg tablet 10 mg PO DAILY 03/16/25 04/27/25 primidone 50 mg tablet 50 mg PO DAILY 03/16/25 04/27/25 azelastine 137 mcg (0.1 %) nasal 1 spray intranasal BID 03/25/25 04/27/25 spray ergocalciferol (vitamin D2) 1,250 50,000 mcg PO .WEEKLY 03/25/25 04/27/25 mcg (50,000 unit) capsule ketoconazole 200 mg tablet 200 mg PO DAILY 03/25/25 04/27/25 lisinopril 20 mg tablet 20 mg PO DAILY 03/25/25 04/27/25 fluticasone propionate 50 2 spray intranasal DAILY 03/26/25 04/27/25 mcg/actuation nasal spray,suspension (Flonase Allergy Relief) Previous Rx's ?Medication ?Instructions ?Recorded aspirin 325 mg capsule 325 mg PO DAILY #30 caps 06/07/25 atorvastatin 40 mg tablet (Lipitor) 40 mg PO DAILY #30 tabs 06/07/25 clonidine HCl 0.1 mg tablet 0.1 mg PO DAILY PRN hypertension 06/07/25 #20 tabs Allergies Allergy/AdvReac Type Severity Reaction Status Date / Time Penicillins Allergy Severe ALGY-Hives Verified 04/27/25 14:33 Review of Systems Narrative: Constitutional symptoms: Negative except as documented in HPI. Skin symptoms: Negative except as documented in HPI. Eye symptoms: Negative except as documented in HPI. ENMT symptoms: Negative except as documented in HPI. Respiratory symptoms: Negative except as documented in HPI. Cardiovascular symptoms: Negative except as documented in HPI. Gastrointestinal symptoms: Negative except as documented in HPI. Genitourinary symptoms: Negative except as documented in HPI. Musculoskeletal symptoms: Negative except as documented in HPI. Neurologic symptoms: Negative except as documented in HPI. Psychiatric symptoms: Negative except as documented in HPI. Endocrine symptoms: Negative except as documented in HPI. PFSH ED PFSH: Social History Smoking and tobacco/nicotine status: never used tobacco/nicotine Physical Exam Narrative: EXAM NARRATIVE: General: Alert, no acute distress. Skin: Warm, dry. Head: Normocephalic, atraumatic. Neck: Supple, trachea midline. Eye: Extraocular movements are intact. Ears, nose, mouth and throat: mucosa moist. Cardiovascular: Regular, Normal peripheral perfusion. Respiratory: Lungs are clear to auscultation, respirations are non-labored, breath sounds are equal, Symmetrical chest wall expansion. Gastrointestinal: Soft, Nontender, Non distended Musculoskeletal: Normal ROM, no deformity. Neurological: Alert and oriented, No focal neurological deficit observed. Psychiatric: Cooperative, appropriate mood & affect. Course Vital Signs: Vital signs: Vital Signs Temperature 98.2 F 06/07/25 13:03 Pulse Rate 69 06/07/25 14:05 Respiratory Rate 16 06/07/25 13:03 Blood Pressure 151/98 06/07/25 13:05 Pulse Oximetry 97 06/07/25 14:05 Oxygen Delivery Me thod Room Air 06/07/25 14:05 MDM - Neuro Symptoms/Deficit Medical Decision Making Differential diagnosis for patient with concerns for an abnormal EKG includes but is not limited to and based on the above HPI, review of systems and physical exam: Pneumonia. unstable angina. angina. Acute coronary syndrome / NM. Pulmonary embolism. Costochondritis / musculoskeletal. Pleurisy. Pericarditis. Esophageal spasm. Pancreatis. Cholecystitis. Orders placed to evaluate differential diagnosis based on the above differential, HPI and physical exam EKG: Time 1337. Rate 65. Normal sinus rhythm, No ST-T changes, no ectopy, normal NC & QRS intervals, This was reviewed and interpreted by myself the ER physician at 1341 Chest x-ray: No acute process. No infiltrate. No pneumothorax. This was reviewed and interpreted by myself the emergency room physician. I also reviewed the radiology report. CT head: No acute intracranial process. No intracranial hemorrhage, no evidence of infarct. No evidence of acute fracture. This was reviewed and interpreted by myself the emergency room physician. I also reviewed the radiology report. Lab Review: Laboratory results were reviewed and interpreted by myself the emergency room physician. No leukocytosis. No anemia. No renal failure. Cardiac marker is negative. proBNP is negative. X-ray shows no signs of heart failure. He is had no dysrhythmias on monitoring here. He has had no chest pain at all. The only symptoms he has had has been the very brief TIA a few days ago and some exertional dyspnea. I reviewed the patient's medical record. 64-year-old man with a history of umbilical hernia, hypertension, and obesity Reexamination: Patient is initially very irritated that he was not seeing a strip winder here today. He says his primary provider told him that he would see a strip winder here. I think in the end of the day he is just very anxious. We talked some more about this and he seems to have some understanding that we did not find any emergent findings today and no indications for admission at this point and he should be able to have follow-up with cardiology as an outpatient. Assessment and plan: Transient ischemic attack Hypertension ? Blood pressure is quite a bit improved here. Home on some clonidine. Also placing him on atorvastatin and aspirin for TIA prevention. - Discharged home - Discussed plan with patient. Answered any questions. - Evaluation and treatment of this problem were appropriate in the emergency setting. Lab Data 06/07/25 13:30 06/07/25 13:30 Radiology Impressions Chest X-Ray 06/07/25 13:08 Impression: Atherosclerosis. Head CT 06/07/25 13:08 IMPRESSION: 1. No evidence of intracranial hemorrhage or mass effect. 2. No acute intracranial findings. Laboratory Results WBC 7.81 10^3/uL (3.29-11.43) 06/07/25 13:30 RBC 4.58 10^6/uL (3.85-5.65) 06/07/25 13:30 Hgb 15.00 g/dL (11.27-16.99) 06/07/25 13:30 Hct 44.3 % (37-53) 06/07/25 13:30 MCV 96.7 fl (82-101) 06/07/25 13:30 MCH 32.8 pg (27-33) 06/07/25 13:30 MCHC 33.9 g/dL (30-55) 06/07/25 13:30 RDW 13.8 % (12.1-15.1) 06/07/25 13:30 Plt Count 260 10^3/cmm (157-399) 06/07/25 13:30 MPV 10.5 fL (7.4-10.4) H 06/07/25 13:30 Neut % (Auto) 70.3 % 06/07/25 13:30 Lymph % (Auto) 15.9 % 06/07/25 13:30 Burnett % (Auto) 7.8 % 06/07/25 13:30 Eos % (Auto) 4.7 % 06/07/25 13:30 Baso % (Auto) 0.8 % 06/07/25 13:30 Neut # (Auto) 5.49 10^3/uL (1.8-7.7) 06/07/25 13:30 Lymph # (Auto) 1.2 10^3/uL (0.8-4.8) 06/07/25 13:30 Burnett # (Auto) 0.6 10^3/uL (0.2-0.9) 06/07/25 13:30 Eos # (Auto) 0.4 10^3/uL (0.0-0.8) 06/07/25 13:30 Baso # (Auto) 0.1 10^3/uL (0.0-0.1) 06/07/25 13:30 Nucleated RBC % (auto) 0 % 06/07/25 13:30 Nucleated RBCs # 0.0 /100WBC 06/07/25 13:30 Sodium 137 mmol/L (136-145) 06/07/25 13:30 Potassium 4.3 mmol/L (3.5-5.1) 06/07/25 13:30 Chloride 101 mmol/L (98-107) 06/07/25 13:30 Carbon Dioxide 19 mmol/L (22-29) L 06/07/25 13:30 Anion Gap 21.3 (5-19) H 06/07/25 13:30 BUN 15 mg/dL (8-23) 06/07/25 13:30 Creatinine 1.0 mg/dL (0.7-1.2) 06/07/25 13:30 GFR Calculation 75.7 mL/min (90-130) L 06/07/25 13:30 Glucose 207 mg/dL (65-115) H 06/07/25 13:30 Calculated Osmolality 291 mOsm/kg (285-295) 06/07/25 13:30 Lactic Acid 1.8 mmol/L (0.5-2.2) 06/07/25 14:15 Calcium 9.2 mg/dL (8.5-10.5) 06/07/25 13:30 Total Bilirubin 0.6 mg/dL (0.15-1.2) 06/07/25 13:30 AST 32 U/L (0-40) 06/07/25 13:30 ALT 49 U/L (0-41) H 06/07/25 13:30 Alkaline Phosphatase 53 U/L (40-130) 06/07/25 13:30 Troponin T Baseline 11 ng/L (0-15) 06/07/25 13:30 NT-Pro-B Natriuret Pep < 36 pg/mL (0-125) 06/07/25 13:30 Total Protein 7.5 g/dL (6.6-8.7) 06/07/25 13:30 Albumin 4.6 g/dL (3.5-5.2) 06/07/25 13:30 Globulin 2.9 g/dL (1.3-4.6) 06/07/25 13:30 All radiology interpretation(s) finalized by discharge Discharge Plan Discharge Patient Disposition: Home Clinical Impression: Hypertension, History of transient ischemic attack Condition: Stable Prescriptions: New clonidine HCl 0.1 mg tablet 0.1 mg PO DAILY PRN (Reason: hypertension) Qty: 20 0RF Rx Instructions: For Systolic >185 diastolic >100. If you are needing this more than once a day you need to follow with your primary care provider atorvastatin [Lipitor] 40 mg tablet 40 mg PO DAILY Qty: 30 1RF aspirin 325 mg capsule 325 mg PO DAILY Qty: 30 1RF No Action primidone 50 mg tablet 50 mg PO DAILY acyclovir 400 mg tablet 400 mg PO DAILY montelukast 10 mg tablet 10 mg PO DAILY amlodipine 10 mg PO DAILY ketoconazole 200 mg tablet 200 mg PO DAILY lisinopril 20 mg tablet 20 mg PO DAILY ergocalciferol (vitamin D2) 1,250 mcg (50,000 unit) capsule 50,000 mcg PO .WEEKLY azelastine 137 mcg (0.1 %) spray,non-aerosol 1 spray INTRANASAL BID fluticasone propionate [Flonase Allergy Relief] 50 mcg/actuation [place],Suspension 2 spray INTRANASAL DAILY Rx Instructions: administer into each nostril Discharge Orders: Discharge ED (Routine); Ordered 06/07/25 Ordered By: Niya Nunez Discharge Diet: Usual diet Discharge Activity: Increase activity as tolerated Patient Instructions: Transient Ischemic Attack (ED), Opioid Safety, Pain Management, Patient Portal & No Instructions Activity Restrictions/Additional Instructions: Thank you for choosing [facility] for your healthcare needs today. You have been screened and evaluated and felt safe for discharge. Health conditions do change or evolve sometimes and as such it is important that you follow up with your Primary Doctor to be re checked, 3-5 days is a general good time frame for follow up. You are always welcome to return to the ED for re assessment if your symptoms are worsening or you have new concerns Print Language: Bengali Coding Level of Care Code ED Elevator Examiner And Adjuster for Herbie Lazo
[2025-06-07 13:30] VITALS: PULSE 72; O2SAT 97
--- NOTE | 2025-06-07 13:37 | ECG_ITS ---
[facility] Test Date: 2025-06-07 Pat Name: Terry Lara Department: Room: Gender: Male Systems Navigator: : 1960 Requested By: Niya Nava Order Number: [id number] Murry MD: Jagruti Velazquez M.D. Measurements Intervals [place] Rate: 65 P: 40 AK: 158 QRS: 39 QRSD: 105 T: 38 QT: 391 QTc: 409 Interpretive Statements SINUS RHYTHM POSSIBLE LEFT ATRIAL ENLARGEMENT [-0.1mV P-WAVE IN V1/V2] No previous ECG available for comparison Electronically Signed On 06-07-2025 23:25:49 CDT by Jagruti Velazquez M.D. [email or web address]
[2025-06-07 13:48] LABS: Hematocrit 44.3 % (37-53); Hemoglobin 15.00 g/dL (11.27-16.99); Mean Corpuscular HGB Conc 33.9 g/dL (30-55); Mean Corpuscular Hemoglobin 32.8 pg (27-33); Mean Corpuscular Volume 96.7 fl (82-101); Nucleated Red Blood Cells % 0 %; Platelet Count 260 10^3/cmm (157-399); Red Blood Count 4.58 10^6/uL (3.85-5.65); White Blood Count 7.81 10^3/uL (3.29-11.43)
[2025-06-07 14:05] VITALS: PULSE 69; O2SAT 97
[2025-06-07 14:15] LABS: Troponin(5th) Baseline 11 ng/L (0-15)
[2025-06-07 14:21] LABS: Alanine Aminotransferase 49 U/L (0-41); Albumin Level 4.6 g/dL (3.5-5.2); Alkaline Phosphatase 53 U/L (40-130); Aspartate Amino Transferase 32 U/L (0-40); Blood Urea Nitrogen 15 mg/dL (8-23); Calcium 9.2 mg/dL (8.5-10.5); Carbon Dioxide 19 mmol/L (22-29); Chloride 101 mmol/L (98-107); Creatinine Clr Calc Pharmacy 94.2305; Globulin 2.9 g/dL (1.3-4.6); Glucose 207 mg/dL (65-115); NT Pro B Type Natriuretic Pept < 36 pg/mL (0-125); Osmolality Calculated 291 mOsm/kg (285-295); Sodium 137 mmol/L (136-145); Total Protein 7.5 g/dL (6.6-8.7)
[2025-06-07 14:26] LABS: Anion Gap 21.3 (5-19); Potassium 4.3 mmol/L (3.5-5.1)
[2025-06-07 14:40] LABS: Lactic Sepsis W/Reflex 1.8 mmol/L (0.5-2.2)
== END 2025-06-07 15:20 | disposition home or self-care (01) ==
PROVIDERS: Emergency Provider Emergency Medicine
DX: I10 Essential (primary) hypertension (principal); Z86.73 Personal history of transient ischemic attack (TIA), and cerebral infarction without residual deficits
CPT/HCPCS: 36415; 70450; 71045; 80053; 83605; 83880; 84484; 85025; 93005; 99285

== ENCOUNTER 2025-06-21 15:29 | Outpatient (CLI) | payer OTHER, SELFPAY ==
--- NOTE | 2025-06-21 15:45 | USCV_ITS ---
Terry Lara Age: 64 Gender: M : 1960 Exam Date: 06/21/2025 15:54 Ordering Phys: Poncho Queen MD ([email or web address]) Technologist: VANDANA Exam Location: [facility] [place] Indication: SoB BP: 170 / 100 HR: 67 Rhythm: Sinus Technical Quality: Adequate MEASUREMENTS (Male / Female) Normal Values 2D ECHO LV Diastolic Diameter PLAX 4.8 cm 4.2 - 5.9 / 3.9 - 5.3 cm IVS Diastolic Thickness 1.3 cm 0.6 - 1.0 / 0.6 - 0.9 cm IVS Systolic Thickness 1.7 cm LVPW Diastolic Thickness 1.2 cm 0.6 - 1.0 / 0.6 - 0.9 cm LVPW Systolic Thickness 2.0 cm LVOT Diameter 2.2 cm LV Ejection Fraction 2D Teich 54.1 % LV Ejection Fraction MOD 4C 64.6 % LV Ejection Fraction MOD 2C 62.3 % LV Ejection Fraction 2C AL 62.2 % LA Diameter 4.8 cm RA Systolic Volume 4C AL 57.4 ml RA Systolic Volume 4C MOD 52.4 ml LA Sys Volume AL 67.7 cm cubed LA Sys Volume Index AL 28.8 cm cubed/m squared Aorta at Sinotubular Diameter 3.0 cm M-MODE LA Ao Ratio MM 1.5 AV Cusp Separation MM 2.0 cm DOPPLER AV Peak Velocity 167.0 cm/s LVOT Peak Velocity 123.0 cm/s AV Area Cont Eq vti 3.3 cm squared AV Area Cont Eq pk 2.7 cm squared MV Peak Velocity 102.0 cm/s MV Area PHT 7.6 cm squared Mitral E to A Ratio 1.6 TV Peak E Velocity 59.0 cm/s PV Peak Velocity 140.0 cm/s FINDINGS Left Ventricle Normal left ventricular size,and systolic function. Left ventricular ejection fraction is 62%. Normal left ventricular diastolic function. Mild concentric left ventricular hypertrophy. Right Ventricle Normal right ventricular size and systolic function. RVSP could not be calculated due to incomplete tricuspid regurgitation velocity profile. Right Atrium Normal right atrial size. Left Atrium Normal left atrial size. IA Septum Normal appearance of the interatrial septum. Mitral Valve Normal mitral valve structure. No mitral valve stenosis or regurgitation. Aortic Valve Aortic valve not well visualized. No aortic valve stenosis. Mild aortic valve regurgitation. Tricuspid Valve Normal tricuspid valve structure. No tricuspid valve stenosis or regurgitation. Normal pulmonary pressure. Pulmonic Valve Normal pulmonic valve structure. No pulmonic valve stenosis or regurgitation. Pericardium No pericardial effusion. Aorta Normal diameter of the aortic root and ascending thoracic aorta. IVC Normal IVC diameter. CONCLUSIONS Normal left ventricular size, systolic function and wall thickness with ejection fraction of 62%. Normal right ventricular size and systolic function. Aortic valve not well visualized. No aortic valve stenosis. Mild aortic valve regurgitation. Poncho Queen MD, FACC (Electronically Signed) Final Date: 22 June 2025 12:55 Amended: 22 June 2025 12:59 C
== END 2025-06-21 15:30 | disposition home or self-care (01) ==
PROVIDERS: Visit Provider Internal Medicine Cardiovascular Disease
DX: R06.02 Shortness of breath (principal); I35.1 Nonrheumatic aortic (valve) insufficiency
CPT/HCPCS: 93306

== ENCOUNTER 2025-06-23 15:39 | Outpatient (CLI) | payer OTHER, SELFPAY ==
--- NOTE | 2025-06-23 16:00 | CT_ITS ---
WS: [id number] CTA HEAD AND NECK TECHNIQUE: Contrast enhanced CTA of the head and neck with coronal and sagittal reformatted images and maximum intensity projection (MIP) images. NASCET criteria utilized. CLINICAL INFORMATION: TIA COMPARISON: None. DLP: 1267.[address] scans at [facility] use at least one of these dose optimization techniques: automated exposure control; mA and/or kV adjustment per patient size (includes targeted exams where dose is matched to clinical indication); or iterative reconstruction. FINDINGS: RIGHT: RIGHT common carotid artery is patent. No significant RIGHT ICA stenosis. ICA is patent to the skull base. Tortuous RIGHT cervical ICA at the skull base LEFT: LEFT common carotid artery is patent. No significant LEFT ICA stenosis. LEFT ICA is patent to the skull base. Tortuous LEFT cervical ICA at the skull base. 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 Smaller but patent LEFT vertebral artery. Basilar artery is patent. Normal vascularity to the SEWER PIPE PRESS OPERATOR territory bilaterally. Both ICAs are patent at the skull base. Mild cavernous carotid calcification. Patent anterior communicating artery. Normal vascularity to the LASHAE and MCA territories bilaterally. No evidence of proximal flow-limiting stenosis. Proximal subclavian arteries are patent. Inflammatory changes in the paranasal sinuses. Mild bilateral maxillary sinusitis. Mastoid air cells are well aerated. Normal posterior nasopharynx. CT/CT angio headneck* [id number] IMPRESSION: 1. No cervical ICA stenosis. No significant atheromatous disease in the caroti d bulbs. 2. 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 See bookmarked images. 3. No flow-limiting intracranial stenosis. 4. RIGHT dominant vertebral artery. Smaller but patent LEFT vertebral artery. 5. Mild cavernous carotid calcification.
[2025-06-23] MEDS: iohexol 350 mg/mL 500 mL Btl (per mL) IV (16:21)
== END 2025-06-23 15:40 | disposition home or self-care (01) ==
LOC: RAD 15:42
PROVIDERS: Visit Provider Internal Medicine Cardiovascular Disease
DX: I72.0 Aneurysm of carotid artery (principal); I65.21 Occlusion and stenosis of right carotid artery; I65.01 Occlusion and stenosis of right vertebral artery
CPT/HCPCS: 70496; 70498

== ENCOUNTER 2025-07-01 12:04 | Outpatient (CLI) | payer OTHER, SELFPAY ==
[2025-07-01 12:46] VITALS: BMI 34.1
--- NOTE | 2025-07-01 12:47 | ECG_ITS ---
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 Interpretive Statements Findings: The patient exercised on the treadmill using the Maury protocol for 9 minutes reaching a maximal heart rate of 146 bpm which was 92% of the patient's maximal predicted heart rate. He achieved 10.2 METS. The patient's resting blood pressure was 159/93 mmHg with a resting heart rate of 82 bpm. The maximum blood pressure was 192/93. The resting EKG showed normal sinus rhythm with Minor nonspecific T wave flattening and mild inversions in lead aVF and lead III respectively.. The patient did have shortness of breath during the treadmill stress test that resolved in recovery. There were no new T wave abnormalities or ST changes during the stress test. Impression: 1. Normal blood pressure and heart rate response to exercise with above average exercise capacity for his age. 2. No inducible ischemia. 3. No arrhythmias. Electronically Signed On 07-02-2025 16:19:57 CDT by Poncho Queen M.D. [email or web address]
[2025-07-01 13:20] VITALS: BP 165/80; PULSE 98
== END 2025-07-01 12:05 | disposition home or self-care (01) ==
LOC: CDL 12:11
PROVIDERS: Visit Provider Internal Medicine Cardiovascular Disease
DX: R07.9 Chest pain, unspecified (principal)
CPT/HCPCS: 93017

== ENCOUNTER 2025-08-19 13:53 | Outpatient (CLI) | payer OTHER, SELFPAY | END 2025-08-19 13:54 | disposition home or self-care (01) | LOC: SLEEP 14:00 | PROVIDERS: Referring Provider Internal Medicine Cardiovascular Disease; Visit Provider Internal Medicine Pulmonary Disease | DX: G47.33 Obstructive sleep apnea (adult) (pediatric) (principal); G47.36 Sleep related hypoventilation in conditions classified elsewhere | CPT/HCPCS: G0399 ==